=== PATIENT | female | born 1985 | race Caucasian/White ===

== ENCOUNTER → 2016-08-17 | Outpatient (REF) ==
[~2016-08-17] MED LIST: BIRTH CONTROL PILLS; CEFTIN500 MG PO; PYRIDIUM200 M1 PO
== END ==
LOC: WSOH 12:00
DX: Z02.89 Encounter for other administrative examinations (principal)

== ENCOUNTER → 2016-10-13 | Outpatient (REF) | LOC: WSOH 16:30 | DX: Z02.89 Encounter for other administrative examinations (principal) ==

== ENCOUNTER 2017-05-16 13:52 | Inpatient (IN) | payer OTHER ==
[2017-05-16] VITALS (21 sets, daily range): BP systolic 102–133; BP diastolic 48–80; PULSE 59–81; TEMP 97.6–98.7
[~2017-05-16] VITALS: Ht 177.8 cm; Wt 91.4 kg
[2017-05-16] MEDS ORDERED: COLACE 100100 MG/CAP PO (14:18)
[2017-05-16] MEDS ORDERED: ZANTAC 150MG T150 MG PO (14:18)
[2017-05-16] MEDS ORDERED: PRENATAL (14:18)
[2017-05-16 15:18] LABS: BASO % 0.3 % (0.0-2.0); EOS # 0.1 (0.0-0.7); EOS % 0.6 % (0-4.0); GRAN # 8.9 (1.4-6.5); GRAN % 74.4 % (42.2-75.2); LYMPH # 2.2 (1.2-3.4); LYMPH % 18.5 % (20.0-51.0); MEAN CELL VOLUME 89 fl (80.0-100.0); MEAN CORPUSCULAR HGB CONC 34 g/dl (33.0-37.0); MEAN PLATELET VOLUME 11.1 fl (7.4-10.4); MONO # 0.7 (0.1-0.6); MONO % 5.8 % (1.7-9.3); PLATELET COUNT 233 K/mm3 (130-400); RED BLOOD COUNT 3.86 M/mm3 (4.10-5.30); REDCELL DISTRIBUTION WIDTH-CV 14.1 % (11.5-14.5)
[2017-05-16 15:29] LABS: HEMATOCRIT 34.3 % (37.0-47.0); HEMOGLOBIN 11.8 g/dl (12.5-16.0); MEAN CORPUSCULAR HEMOGLOBIN 31 pg (27.0-31.0)
[2017-05-17 02:45] VITALS: BP 124/66; PULSE 88; TEMP 98
[2017-05-17 05:40] VITALS: BP 113/70; PULSE 78; TEMP 97.8
[2017-05-17] MEDS ORDERED: PERCOCET 325 MG1 TA2 PO (08:15)
[2017-05-17] MEDS ORDERED: IBU600 MG PO (08:15)
[2017-05-17 08:51] VITALS: BP 110/68; PULSE 81
[2017-05-17 16:30] VITALS: BP 119/75; PULSE 79
[2017-05-17 20:00] VITALS: BP 118/68; PULSE 72; TEMP 98.5
[2017-05-18 01:30] VITALS: BP 118/70; PULSE 66; TEMP 98
[2017-05-18 08:15] VITALS: BP 114/66; PULSE 90; TEMP 97.8
[2017-05-18 16:45] VITALS: BP 141/76; PULSE 103; TEMP 97.8
== END 2017-05-18 19:45 | disposition home or self-care (01) | DRG 766 ==
LOC: LDRO 13:52 → OB 14:11 → LDR 14:11 → OB 19:30 → LDRO 06-10 16:51
PROVIDERS: Obstetrics & Gynecology
PROC: 10D00Z1 Extraction of Products of Conception, Low, Open Approach (ICD-10-PCS; principal; 2017-05-16)
DX: O76 Abnormality in fetal heart rate and rhythm complicating labor and delivery (principal); O48.0 Post-term pregnancy; O36.63X0 Maternal care for excessive fetal growth, third trimester, not applicable or unspecified; O77.0 Labor and delivery complicated by meconium in amniotic fluid; Z3A.40 40 weeks gestation of pregnancy; Z37.0 Single live birth
CPT/HCPCS: J0690; J1885; J2270; J2405; J2550; J2590; J7120

== ENCOUNTER → 2017-06-16 | Outpatient (CLI) | payer OTHER ==
[~2017-06-16] MED LIST changes: +COLACE 100100 MG/CAP PO; +IBU600 MG PO; +PERCOCET 325 MG1 TA2 PO; +PRENATAL; +ZANTAC 150MG T150 MG PO
== END ==
LOC: LAC 13:53
DX: Z39.1 Encounter for care and examination of lactating mother (principal); Z71.89 Other specified counseling

== ENCOUNTER → 2017-10-11 | Outpatient (CLI) | payer OTHER | LOC: COL.RAD 13:18 | DX: E04.1 Nontoxic single thyroid nodule (principal) ==

== ENCOUNTER 2018-12-18 05:35 | Inpatient (IN) | payer BC ==
[2018-12-18] VITALS (19 sets, daily range): BP systolic 81–115; BP diastolic 45–67; PULSE 68–100; TEMP 98–98.8
[~2018-12-18] VITALS: Ht 174 cm; Wt 90.9 kg
--- NOTE | 2018-12-18 05:40 | NUR ---
Pt arrives on unit for scheduled repeat section. Denies vaginal bleeding, LOF and ctx. Reports GFM. Admission assessment completed. Consents signed. Pt updated on POC. Safety reviewed. No questions or concerns at this time. Bed locked in low position. Call light within reach.
[2018-12-18 06:28] LABS: BASO % 0.2 % (0.0-2.0); EOS # 0.2 (0.0-0.7); EOS % 1.4 % (0-4.0); GRAN # 7.1 (1.4-6.5); GRAN % 66.4 % (42.2-75.2); HEMOGLOBIN 12.5 g/dl (12.5-16.0); LYMPH # 2.5 (1.2-3.4); LYMPH % 23.5 % (20.0-51.0); MEAN CELL VOLUME 87 fl (80.0-100.0); MEAN CORPUSCULAR HEMOGLOBIN 30 pg (27.0-31.0); MEAN CORPUSCULAR HGB CONC 34 g/dl (33.0-37.0); MEAN PLATELET VOLUME 10.3 fl (7.4-10.4); MONO # 0.9 (0.1-0.6); PLATELET COUNT 235 K/mm3 (130-400); RED BLOOD COUNT 4.22 M/mm3 (4.10-5.30)
[2018-12-18 06:31] LABS: HEMATOCRIT 36.8 % (37.0-47.0)
[2018-12-18] MEDS ORDERED: SLOW FE142 MG PO (06:32)
--- NOTE | 2018-12-18 17:15 | NUR ---
Rests in bed, alert, family at bedside. Denies any needs at this time.
[2018-12-19 04:25] VITALS: BP 93/54; PULSE 73; TEMP 98.3
--- NOTE | 2018-12-19 08:46 | NUR ---
Initial visit; Patient thanked Merchandise Worker for stopping and offering congratulations and God's blessings for the of her daughter. Merchandise Worker thanked family for choosing [facility].
[2018-12-19 12:35] VITALS: BP 96/55; PULSE 84
[2018-12-19 16:33] VITALS: BP 108/55; PULSE 73
[2018-12-19 20:20] VITALS: BP 98/57; PULSE 82; TEMP 97.7
[2018-12-20 08:04] VITALS: BP 102/50; PULSE 81; TEMP 98.4
[2018-12-20] MEDS ORDERED: IBU600 MG PO (09:04)
[2018-12-20] MEDS ORDERED: PERCOCET 325 MG1 TA2 PO (09:05)
--- NOTE | 2018-12-20 11:30 | NUR ---
Discharge instructions given, pt verbalizes understanding. No further questions. Bands matched and hugs tag removed.
== END 2018-12-20 12:45 | disposition home or self-care (01) | DRG 788 ==
LOC: OB 05:35 → LDR 13:08 → OB 12-20 12:45
PROVIDERS: ADMIT Obstetrics & Gynecology
PROC: 10D00Z1 Extraction of Products of Conception, Low, Open Approach (ICD-10-PCS; principal; 2018-12-18)
DX: O34.211 Maternal care for low transverse scar from previous cesarean delivery (principal); O99.62 Diseases of the digestive system complicating childbirth; K21.9 Gastro-esophageal reflux disease without esophagitis; O99.013 Anemia complicating pregnancy, third trimester; D64.9 Anemia, unspecified; Z3A.39 39 weeks gestation of pregnancy; Z37.0 Single live birth
CPT/HCPCS: J0171; J0690; J1885; J2270; J2370; J2405; J2590; J7120

== ENCOUNTER → 2019-12-20 | Outpatient (CLI) | payer BC ==
[~2019-12-20] MED LIST changes: +SLOW FE142 MG PO
== END ==
LOC: COL.RAD 09:35
DX: E04.1 Nontoxic single thyroid nodule (principal)

== ENCOUNTER → 2020-01-01 | Outpatient (CLI) | payer BC | LOC: MC.RAD 12-25 13:15 | DX: Z12.31 Encounter for screening mammogram for malignant neoplasm of breast (principal) ==

== ENCOUNTER → 2020-08-25 | Outpatient (REF) | LOC: COL.EMP 17:17 | DX: Z20.822 Contact with and (suspected) exposure to COVID-19 (principal) ==

== ENCOUNTER → 2021-05-19 | Outpatient (CLI) | payer OTHER | LOC: MC.RAD 03-31 13:30 | DX: Z12.31 Encounter for screening mammogram for malignant neoplasm of breast (principal); Z80.3 Family history of malignant neoplasm of breast ==